=== PATIENT | female | born 1940 | race Caucasian/White ===

== ENCOUNTER 2018-09-01 19:02 | Emergency (ER) | payer OTHER ==
[2018-09-01] MEDS: ONDANSETRON 4 MG INJ IV (20:11)
[2018-09-01] MEDS: SOD CHLORIDE 0.9% 500 ML IV (20:11)
[2018-09-01 20:12] LABS: ABNORMAL IP MESSAGE 1; HEMATOCRIT 42.5 % (37.0-47.0); HEMOGLOBIN 14.2 g/dl (12.0-16.0); MEAN CORPUSCULAR HEMOGLOBIN 27.8 pg (29.0-33.0); MEAN CORPUSCULAR HGB CONC 33.4 g/dl (32.0-37.0); MEAN CORPUSCULAR VOLUME 83.2 fl (82.0-101.0); MEAN PLATELET VOLUME 9.5 fl (7.4-10.4); PLATELET COUNT 239 10^3/UL (140-415); RED BLOOD COUNT 5.11 10^6/ul (4.20-5.40); RED CELL DISTRIBUTION WIDTH 12.9 % (11.5-14.5)
[2018-09-01 20:12] LABS: WHITE BLOOD COUNT 8.8 10^3/ul (4.8-10.8)
[2018-09-01] MEDS: morphine 4 MG/ML VIAL IV (20:13)
[2018-09-01 20:17] LABS: ADD MAN DIFF? YES; POSITIVE DIFF @See below
[2018-09-01 20:29] LABS: INR 0.95; PROTIME 12.8 Sec (11.9-14.9)
[2018-09-01 20:30] LABS: PARTIAL THROMBOPLASTIN TIME 31.8 Sec (23.0-35.0)
[2018-09-01 20:35] LABS: ANION GAP 10 (5-13); BLOOD UREA NITROGEN 14 mg/dl (7-20); CALCIUM 9.4 mg/dl (8.4-10.2); CARBON DIOXIDE 25 mmol/L (21-31); CHLORIDE 103 mmol/L (97-110); CREATININE 0.66 mg/dl (0.44-1.00); GLUCOSE 110 mg/dl (70-220); POTASSIUM 4.2 mmol/L (3.5-5.1); SODIUM 138 mmol/L (135-144)
[2018-09-01 20:43] LABS: C-REACTIVE PROTEIN < 0.5 mg/dl (0.0-0.9)
[2018-09-01 20:44] LABS: TROPONIN-I < 0.012 ng/ml (0.000-0.120)
[2018-09-01 20:47] LABS: ANISOCYTOSIS 1+ (0-0); BAND NEUTROPHILS #M 0.1 10^3/ul (0.0-0.6); BAND NEUTROPHILS % (M) 2 % (0-4); EOSINOPHILS % (M) 25 % (0-7); GIANT THROMBO% (M) 1 % (0-0); LYMPHOCYTES #M 1.1 10^3/ul (0.8-2.9); LYMPHOCYTES % (M) 13 % (15-51); MICROCYTOSIS 1+ (0-0); MONOCYTE #M 0.6 10^3/ul (0.3-0.9); MONOCYTES % (M) 7 % (0-11); PLATELET ESTIMATE NORMAL; SEG NEUT #M 4.7 10^3/ul (1.6-7.5); SEGMENTED NEUTROPHILS (M) % 53 % (39-77); SMUDGE%M 3 % (0-0)
[2018-09-01 21:24] LABS: ERYTHROCYTE SEDIMENTATION RATE 10 mm/Hr (0-30)
== END 2018-09-01 22:16 | disposition home or self-care (01) ==
LOC: E/R 19:02
DX: I16.0 Hypertensive urgency (principal); E11.9 Type 2 diabetes mellitus without complications; I10 Essential (primary) hypertension; Z79.01 Long term (current) use of anticoagulants; Z79.84 Long term (current) use of oral hypoglycemic drugs
CPT/HCPCS: 36415; 70450; 80048; 84484; 85025; 85610; 85651; 85730; 86140; 93005; 96361; 96374; 96375; 99285-25